=== PATIENT | female | born 2000 | race Caucasian/White ===

== ENCOUNTER 2021-03-18 09:57 | Emergency (ER) | payer OTHER ==
[~2021-03-18 09:57] MED LIST: IBUPROFEN800 MG PO; ONDANSETRON ODT4 MG SL; PERCOCET 5-3251 EACH PO; PRILOSEC20 MG PO
[2021-03-18 10:36] LABS: BASOPHIL 0.3 % (0-2); EOSINOPHIL 0.4 % (0-5); HCT 45.6 % (37.0-47.0); HGB 15.4 g/dl (12.5-16.0); LYMPHOCYTE 15.3 % (15-48); MCH 29.3 pg (25.0-31.0); MCHC 33.8 g/dL (32.0-36.0); MCV 86.7 fL (78.0-100.0); MONOCYTE 3.4 % (0-12); MPV 9.2 fL (6.0-9.5); NEUTROPHIL 80.3 % (41-80); NRBC 0; PLT 265 K/uL (150-400); RBC 5.26 M/uL (4.20-5.40); RDW 12.2 % (11.5-14.0); WBC 7.3 K/uL (4.0-10.5)
[2021-03-18 10:58] LABS: ALBUMIN 3.9 g/dL (3.4-5.0); ALKALINE PHOSHATASE 147 U/L (46-116); ALT 51 U/L (14-59); AST 34 U/L (15-37); BILIRUBIN - TOTAL 0.4 mg/dL (0.2-1.0); BUN 11 mg/dL (7-18); CHLORIDE 106 mmol/L (98-107); CO2 (BICARBONATE) 24 mmol/L (21-32); CREATININE 0.61 mg/dL (0.51-0.95); GLOBULIN (CALCULATION) 3.4 g/dL; GLUCOSE 127 mg/dL (74-106); POTASSIUM 4.6 mmol/L (3.5-5.1); TOTAL PROTEIN 7.3 g/dL (6.4-8.2)
[2021-03-18 11:15] LABS: BILIRUBIN NEGATIVE (NEGATIVE); BLOOD NEGATIVE Ery/uL (NEGATIVE); CLARITY CLEAR (CLEAR); COLOR YELLOW (YELLOW); GLUCOSE (U) NORMAL (NORMAL); LEUKOCYTES NEGATIVE Leu/uL (NEGATIVE); NITRITE NEGATIVE (NEGATIVE); PROTEIN NEGATIVE (NEGATIVE); SPECIFIC GRAVITY 1.015 (1.001-1.030); pH 7.5 (5.0-9.0)
[2021-03-18 11:19] LABS: AMPHETAMINES NEGATIVE (NEGATIVE); BARBITURATES NEGATIVE (NEGATIVE); ECSTASY (MDMA) NEGATIVE (NEGATIVE); MARIJUANA (THC) POSITIVE (NEGATIVE); METHADONE NEGATIVE (NEGATIVE); OPIATES NEGATIVE (NEGATIVE); OXYCODONE NEGATIVE (NEGATIVE)
== END 2021-03-18 15:29 | disposition home or self-care (01) ==
LOC: FER 09:57
PROVIDERS: Emergency Medicine
DX: F32.9 Major depressive disorder, single episode, unspecified (principal); Z88.5 Allergy status to narcotic agent; Z20.822 Contact with and (suspected) exposure to COVID-19
CPT/HCPCS: 36415; 80053; 80305; 81003; 85025; 99284; G0480; U0002

== ENCOUNTER 2022-02-06 20:26 | Emergency (ER) | payer OTHER ==
[2022-02-06 21:07] LABS: BASOPHIL 0.3 % (0-2); EOSINOPHIL 0 % (0-5); HCT 45.5 % (37.0-47.0); HGB 15.8 g/dl (12.5-16.0); LYMPHOCYTE 22.4 % (15-48); MCH 28.8 pg (25.0-31.0); MCHC 34.7 g/dL (32.0-36.0); MCV 82.9 fL (78.0-100.0); MONOCYTE 4.5 % (0-12); MPV 9.1 fL (6.0-9.5); NEUTROPHIL 72.4 % (41-80); NRBC 0; PLT 421 K/uL (150-400); RBC 5.49 M/uL (4.20-5.40); RDW 12.1 % (11.5-14.0); WBC 7.6 K/uL (4.0-10.5)
[2022-02-06 21:38] LABS: ALBUMIN 4.5 g/dL (3.4-5.0); BILIRUBIN - TOTAL 0.6 mg/dL (0.2-1.0); BUN/CREAT RATIO (CALC) 12.3 RATIO; CREATININE 0.65 mg/dL (0.51-0.95); GLOBULIN (CALCULATION) 3.8 g/dL; POTASSIUM 2.8 mmol/L (3.5-5.1); TOTAL PROTEIN 8.3 g/dL (6.4-8.2)
[2022-02-06 21:55] LABS: CORONAVIRUS 2019 SARS-COV-2 NEGATIVE (NEGATIVE); INFLUENZA A NAA NEGATIVE (NEGATIVE)
[2022-02-06 22:59] LABS: AMPHETAMINES NEGATIVE (NEGATIVE); BARBITURATES NEGATIVE (NEGATIVE); ECSTASY (MDMA) NEGATIVE (NEGATIVE); MARIJUANA (THC) POSITIVE (NEGATIVE); METHADONE NEGATIVE (NEGATIVE); OPIATES NEGATIVE (NEGATIVE); OXYCODONE NEGATIVE (NEGATIVE)
[2022-02-08] MEDS ORDERED: UROCIT-K10 MEQ PO (02:15)
== END 2022-02-07 01:16 | disposition home or self-care (01) ==
LOC: FER 20:26
PROVIDERS: Emergency Medicine
DX: T42.4X1A Poisoning by benzodiazepines, accidental (unintentional), initial encounter (principal); R00.2 Palpitations; Z20.822 Contact with and (suspected) exposure to COVID-19; Z28.310 Unvaccinated for COVID-19
CPT/HCPCS: 36415; 71045; 80053; 80305; 84443; 84484; 85025; 85379; 93005; J2405; J3475; J3480; J7030; J7050; U0002